=== PATIENT | male | born 1950 | race Caucasian/White ===

== ENCOUNTER 2017-12-19 22:43 | Emergency (ER) | payer MEDICARE, OTHER ==
[~2017-12-19] VITALS: Ht 188 cm; Wt 113.6 kg
[2017-12-19] MEDS ORDERED: epiNEPHrine 1 mg/ml inj SQ STA (22:49)
[2017-12-19] MEDS ORDERED: albuterol 2.5 MG/3 ML nebule CONTNEB PRN (22:50)
[2017-12-19] MEDS ORDERED: normal saline 1000ml 1,000 ML IV ONE (22:50)
[2017-12-19] MEDS ORDERED: famotidine/PF 10 mg/ml inj IV ONE (22:50)
[2017-12-19] MEDS ORDERED: methylPREDNISolone sod succ 125mg/2ml vial IV ONE (22:50)
[2017-12-19] MEDS ORDERED: LORazepam 2 mg/ml vial IV ONE (22:50)
[2017-12-19] MEDS ORDERED: NORMAL SALINE IV ONE (22:55)
[2017-12-19] MEDS ORDERED: TRANEXAMIC ACID IV ONE (22:55)
[2017-12-19] MEDS ORDERED: GABA-534 PO (23:00)
[2017-12-19] MEDS ORDERED: MELO-102 PO (23:00)
[2017-12-19] MEDS ORDERED: LOSA25TA96 PO (23:00)
[2017-12-19] MEDS ORDERED: SAXA5TAB PO (23:00)
[2017-12-19] MEDS ORDERED: GABA-530 PO (23:00)
[2017-12-19] MEDS ORDERED: MULT-38 PO (23:00)
[2017-12-19] MEDS ORDERED: METF500T PO (23:00)
[2017-12-19] MEDS ORDERED: ACET-2119 PO (23:00)
[2017-12-19] MEDS ORDERED: SIMV10TA2 PO (23:00)
[2017-12-19] MEDS ORDERED: tranexamic acid 100mg/ml inj. ONE (23:33)
[2017-12-20] MEDS ORDERED: diphenhydrAMINE 50 mg/ml inj IV ONE (00:25)
[2017-12-20 00:43] VITALS: BP 162/90
[2017-12-20] MEDS ORDERED: LORazepam 2 mg/ml vial IV ONE (00:45)
[2017-12-20 01:05] VITALS: BP 152/87
[2017-12-20 02:01] VITALS: BP 144/72
[2017-12-20] MEDS ORDERED: EPIN0.3P8 IM (02:16)
[2017-12-20] MEDS ORDERED: triamcinolone acetonide 40mg/ml inj IM ONE (02:55)
[2017-12-20 04:21] VITALS: BP 141/70
== END 2017-12-20 04:46 | disposition left against medical advice (07) ==
LOC: ER 22:44
DX: T78.2XXA Anaphylactic shock, unspecified, initial encounter (principal); I10 Essential (primary) hypertension; J45.909 Unspecified asthma, uncomplicated; E11.9 Type 2 diabetes mellitus without complications; Z88.5 Allergy status to narcotic agent; Z79.899 Other long term (current) drug therapy; Z79.84 Long term (current) use of oral hypoglycemic drugs
CPT/HCPCS: 36415; 86885; 86900; 86901; 93005; 94640; 94760; 96365; 96366; 96372; 96375; 99285; J0171; J1200; J2060; J2930; J3301; J3490; J7030; P9059

== ENCOUNTER 2020-10-24 06:23 | Day surgery (SDC) | payer MEDICARE ==
[2020-10-17 14:51] LABS: BASOPHILS # (AUTO) 0.1 X10'3 (0-0.2); BASOPHILS % (AUTO) 0.9 % (0-1); EOSINOPHILS # (AUTO) 0.1 X10'3 (0-0.9); EOSINOPHILS % (AUTO) 1.4 % (0-6); LYMPHOCYTES % (AUTO) 12.2 % (21-51); MEAN CORPUSCULAR HEMOGLOBIN 31.3 PG (27.0-31.0); MEAN CORPUSCULAR HGB CONC 33.2 g/dL (33.0-36.5); MEAN CORPUSCULAR VOLUME 94.2 FL (78-98); MEAN PLATELET VOLUME 7.9 FL (7.4-10.4); MONOCYTES # (AUTO) 0.6 X10'3 (0-0.9); MONOCYTES % (AUTO) 7.7 % (2-12); NEUTROPHILS # (AUTO) 6.3 X10'3 (1.8-7.7); NEUTROPHILS % (AUTO) 77.8 % (42-75); PRE OP HEMATOCRIT 38.2 % (42.0-52.0); PRE OP HEMOGLOBIN 12.7 g/dL (14.0-17.9); PRE OP PLATELET COUNT 307 X10'3 (140-440); RED BLOOD COUNT 4.06 X10'6 (4.70-6.10); RED CELL DISTRIBUTION WIDTH 13.2 % (11.5-14.5)
[2020-10-17 15:04] LABS: ALBUMIN 3.7 G/DL (3.4-5.0); ALBUMIN/GLOBULIN RATIO 1.1 (1.1-1.5); ALKALINE PHOSPHATASE 114 IU/L (46-116); BLOOD UREA NITROGEN 34 MG/DL (7-18); BUN/CREATININE RATIO 16.5 (5.4-32.0); CHLORIDE 103 MMOL/L (99-107); CREATININE 2.06 MG/DL (0.60-1.10); PRE OP ALT 39 U/L (30-65); PRE OP ANION GAP 8 (8-16); PRE OP AST 31 U/L (10-37); PRE OP BILIRUB, TOTAL 0.2 MG/DL (0.0-1.0); PRE OP GLUCOSE 146 MG/DL (70-104); PRE OP SODIUM 137 MMOL/L (135-145); TOTAL CARBON DIOXIDE 25.9 MMOL/L (24-32); TOTAL PROTEIN 7.1 G/DL (6.4-8.2); eGFR 32 ML/MIN
[2020-10-24] VITALS (8 sets, daily range): BP systolic 133–167; BP diastolic 69–84
[~2020-10-24] VITALS: Ht 185.4 cm; Wt 107.0 kg
[~2020-10-24 06:23] MED LIST: ALOG25TA PO; AMLO2.5T2 PO; CALC200T PO; DOCUMENT DATE & TIME OF BETA-BLOCKER PO ONE; EPIN0.3P8 IM; FLAX100032 PO; GABA-530 PO; GABA-534 PO; GLUC-221 PEG; LIDOcaine 1% (10mg/ml) 2ml vial ONE; LOSA25TA96 PO; MELO-102 PO; METF500T PO; METO-384 PO; MV,C1TAB35 PO; albuterol 2.5 MG/3 ML nebule NEB ONE; ceFAZolin 2gm in dextrose, iso 50 ML IV ONE; famotidine 20mg tablet PO ONE; ringers solution, lacted 1,000 ML IV SCH
[2020-10-24] MEDS ORDERED: ringers solution, lacted 1,000 ML IV SCH (07:30)
[2020-10-24] MEDS ORDERED: meperidine/PF 25mg/ml syringe IV PRN ×3 (07:30)
[2020-10-24] MEDS ORDERED: ondansetron/PF 4mg/2ml inj IV PRN (07:30)
[2020-10-24] MEDS ORDERED: proCHLORperazine 10 MG/2 ml inj IV PRN (07:30)
[2020-10-24] MEDS ORDERED: BUPIVAcaine/PF 2.5mg/ml (0.25%) 10ml vial ONE ×2 (09:51→09:54)
[2020-10-24] MEDS ORDERED: LIDOcaine 0.5% (5mg/ml) 50ml vial ONE (09:52)
[2020-10-24] MEDS ORDERED: fentaNYL/PF 50MCG/1 ML 2ML syringe ONE (09:57)
[2020-10-24] MEDS ORDERED: midazolam 1 mg/ML 2ml injection ONE (09:59)
[2020-10-24] MEDS ORDERED: propofol inj 20 ML IV ONE (10:34)
--- NOTE | 2020-10-24 10:50 | NUR ---
Received from OR via [facility], accompanied by Anesthesiologist DR GRADY and report given by Anesthesiologist. PATIENT waking up, DENIES PAIN, V/S WNL, NEUROVASCULAR CHECKS INTACT-right fingers pink warm, able to move and +sensation, RIGHT WRIST DRESSING CDI ELEVATED WITH ICE BAG APPLIED. 20G LUE.
--- NOTE | 2020-10-24 12:00 | NUR ---
PATIENT A&OX4, DENIES PAIN, V/S WNL, NEUROVASCULAR CHECKS INTACT-FINGERS TO RIGHT WRIST PINK WARM, +CAP REFILL, ABLE TO MOVE, RIGHT WRIST DRESSING-CDI, ELEVATED WITH ICE BAG APPLIED. 20G LUE D/C WITH NO COMPLICATIONS OBSERVED. PT HAS HISTORY OF VERTIGO - SLIGHTLY DIZZY (BP WNL), PT AWARE OF NEED TO GO SLOW. I HAVE REVIEWED D/C INSTRUCTIONS WITH PATIENT AND FAMILY AND THEY HAVE VERBALIZED UNDERSTANDING. PATIENT D/C HOME WITH FAMILY TO TRANSPORT AND ALL BELONGINGS.
== END 2020-10-24 12:00 | disposition home or self-care (01) ==
LOC: PAS 06:23
PROVIDERS: ATTEND Orthopaedic Surgery Hand Surgery
DX: M19.041 Primary osteoarthritis, right hand (principal); J45.909 Unspecified asthma, uncomplicated; G47.30 Sleep apnea, unspecified; E11.9 Type 2 diabetes mellitus without complications; I10 Essential (primary) hypertension; E78.00 Pure hypercholesterolemia, unspecified; M85.80 Other specified disorders of bone density and structure, unspecified site; Z72.89 Other problems related to lifestyle; Z88.5 Allergy status to narcotic agent; Z96.653 Presence of artificial knee joint, bilateral; Z98.49 Cataract extraction status, unspecified eye; Z98.84 Bariatric surgery status; Z98.890 Other specified postprocedural states; Z79.899 Other long term (current) drug therapy; Z79.82 Long term (current) use of aspirin; Z79.84 Long term (current) use of oral hypoglycemic drugs; Z79.2 Long term (current) use of antibiotics
CPT/HCPCS: 26531; 36415; 80053; 82948; 85025; 93005; J2001; J2250; J2704; J3010; J3490; L8630; A4215; A4618; A7000; J7120

== ENCOUNTER 2022-05-02 07:30 | Day surgery (SDC) | payer MEDICARE ==
[2022-05-01 10:47] LABS: ALBUMIN 3.9 G/DL (3.4-5.0); ANION GAP 11 (8-16); BLOOD UREA NITROGEN 29 MG/DL (7-18); BUN/CREATININE RATIO 12.7 (5.4-32.0); CALCIUM 8.9 MG/DL (8.5-10.1); CHLORIDE 103 MMOL/L (99-107); CREATININE 2.29 MG/DL (0.60-1.10); GLUCOSE 186 MG/DL (70-104); POTASSIUM 4.4 MMOL/L (3.5-5.1); SODIUM 136 MMOL/L (135-145); TOTAL CARBON DIOXIDE 22.2 MMOL/L (24-32); eGFR 28 ML/MIN
[2022-05-01 10:49] LABS: BASOPHILS # (AUTO) 0.1 X10'3 (0-0.2); BASOPHILS % (AUTO) 1.3 % (0-1); EOSINOPHILS % (AUTO) 0.8 % (0-6); HEMATOCRIT 34.6 % (42.0-52.0); HEMOGLOBIN 11.5 g/dl (14.0-17.9); LYMPHOCYTES # (AUTO) 0.9 X10'3 (1.1-4.8); LYMPHOCYTES % (AUTO) 14.6 % (21-51); MEAN CORPUSCULAR HEMOGLOBIN 30.9 PG (27.0-31.0); MEAN CORPUSCULAR HGB CONC 33.1 g/dL (33.0-36.5); MEAN CORPUSCULAR VOLUME 93.3 FL (78-98); MEAN PLATELET VOLUME 8.1 FL (7.4-10.4); MONOCYTES # (AUTO) 0.4 X10'3 (0-0.9); MONOCYTES % (AUTO) 7.3 % (2-12); NEUTROPHILS # (AUTO) 4.6 X10'3 (1.8-7.7); PLATELET COUNT 248 X10'3 (140-440); RED BLOOD COUNT 3.71 X10'6 (4.70-6.10); RED CELL DISTRIBUTION WIDTH 13.9 % (11.5-14.5)
[2022-05-01 10:52] LABS: APTT 30 SECONDS (22-32)
[2022-05-02] VITALS (12 sets, daily range): BP systolic 130–155; BP diastolic 58–85
[~2022-05-02] VITALS: Ht 185.4 cm; Wt 93.9 kg
[~2022-05-02 07:30] MED LIST changes: -DOCUMENT DATE & TIME OF BETA-BLOCKER PO ONE; -LIDOcaine 1% (10mg/ml) 2ml vial ONE; -albuterol 2.5 MG/3 ML nebule NEB ONE; -ceFAZolin 2gm in dextrose, iso 50 ML IV ONE; -famotidine 20mg tablet PO ONE; -ringers solution, lacted 1,000 ML IV SCH
[2022-05-02] MEDS ORDERED: LORazepam 0.5 MG tablet PO PRN (07:45)
[2022-05-02] MEDS ORDERED: sodium bicarbonate (8.4%) inj. 150 ML in dextrose 5%-water 1,000 ML IV ONE (07:45)
[2022-05-02] MEDS ORDERED: diphenhydrAMINE 25mg capsule PO PRN (07:45)
[2022-05-02] MEDS ORDERED: LIDOcaine/PRILOcaine 5gm cream TP ONE (07:50)
[2022-05-02] MEDS ORDERED: LOSA50TA3 PO (08:02)
[2022-05-02] MEDS ORDERED: ROSU20TA2 PO (08:02)
[2022-05-02] MEDS ORDERED: CALC600T35 PO (08:02)
[2022-05-02] MEDS ORDERED: AMLO10TA PO (08:02)
[2022-05-02] MEDS ORDERED: nitroGLYCERIN-Tridil 50MG/D5W 250 ML IV ONE (08:32)
[2022-05-02] MEDS ORDERED: LIDOcaine 1% (10mg/ml) 2ml vial ONE (08:33)
[2022-05-02] MEDS ORDERED: fentaNYL/PF 50MCG/1 ML 2ML syringe ONE (08:33)
[2022-05-02] MEDS ORDERED: verapamil 2.5 mg/ml inj IV ONE (08:33)
[2022-05-02] MEDS ORDERED: midazolam 1 mg/ML 2ml injection ONE (08:33)
[2022-05-02] MEDS ORDERED: iohexol 350MG/ML 100ml bottle IV ONE (08:34)
[2022-05-02] MEDS ORDERED: heparin 1,000unit/ml 10ml vial 10 ML ONE (08:34)
[2022-05-02] MEDS: acetylcysteine 200 MG/ml 4ml vial PO PRN ×2 (08:42→11:06)
[2022-05-02] MEDS ORDERED: acetylcysteine 200 MG/ml 4ml vial INH ONE (11:05)
[2022-05-02] MEDS ORDERED: sodium bicarbonate (8.4%) inj. 150 MEQ in dextrose 5%-water 1,000 ML IV SCH (11:10)
== END 2022-05-02 16:55 | disposition home or self-care (01) ==
LOC: SSTAY O 07:30
PROVIDERS: ATTEND Internal Medicine Cardiovascular Disease
DX: R94.39 Abnormal result of other cardiovascular function study (principal); I25.10 Atherosclerotic heart disease of native coronary artery without angina pectoris; E78.5 Hyperlipidemia, unspecified; E11.9 Type 2 diabetes mellitus without complications; G47.33 Obstructive sleep apnea (adult) (pediatric); M19.90 Unspecified osteoarthritis, unspecified site; Z79.899 Other long term (current) drug therapy; Z98.890 Other specified postprocedural states; Z79.01 Long term (current) use of anticoagulants
CPT/HCPCS: 36415; 76937; 80048; 85025; 85610; 85730; 93005; 93458; 99152; 99153; C1769; C1894; J1644; J2250; J3010; J3490; J7030; J7070; Q0163; Q9967; A4620; A5120; A6258; A6402

== ENCOUNTER 2023-06-12 09:08 | Observation (INO) | payer MEDICARE ==
[2023-06-11 14:35] LABS: BASOPHILS % (AUTO) 0.8 % (0-1); EOSINOPHILS # (AUTO) 0.1 X10'3 (0-0.9); EOSINOPHILS % (AUTO) 3.3 % (0-6); HEMATOCRIT 27.1 % (42.0-52.0); HEMOGLOBIN 8.5 g/dl (14.0-17.9); LYMPHOCYTES # (AUTO) 0.6 X10'3 (1.1-4.8); LYMPHOCYTES % (AUTO) 30.5 % (21-51); MEAN CORPUSCULAR HEMOGLOBIN 28.5 PG (27.0-31.0); MEAN CORPUSCULAR HGB CONC 31.2 g/dL (33.0-36.5); MEAN CORPUSCULAR VOLUME 91.4 FL (78-98); MEAN PLATELET VOLUME 7.4 FL (7.4-10.4); MONOCYTES # (AUTO) 0.5 X10'3 (0-0.9); MONOCYTES % (AUTO) 26.5 % (2-12); NEUTROPHILS # (AUTO) 0.8 X10'3 (1.8-7.7); NEUTROPHILS % (AUTO) 38.9 % (42-75); PLATELET COUNT 220 X10'3 (140-440); RED BLOOD COUNT 2.97 X10'6 (4.70-6.10); RED CELL DISTRIBUTION WIDTH 16.7 % (11.5-14.5)
[2023-06-11 14:42] LABS: ALBUMIN 3.6 G/DL (3.4-5.0); ANION GAP 11 (8-16); BLOOD UREA NITROGEN 44 MG/DL (7-18); BUN/CREATININE RATIO 9.1 (10.0-20.0); CALCIUM 8.9 MG/DL (8.5-10.1); CHLORIDE 99 MMOL/L (99-107); CREATININE 4.84 MG/DL (0.60-1.10); GLUCOSE 126 MG/DL (70-104); POTASSIUM 3.7 MMOL/L (3.5-5.1); SODIUM 136 MMOL/L (135-145); TOTAL CARBON DIOXIDE 26.2 MMOL/L (24-32); eGFR 12 ML/MIN
[2023-06-11 14:46] LABS: APTT 36 SECONDS (22-32); INR 1.2 INR; PROTHROMBIN TIME 12.9 SECONDS (9.0-12.0)
[2023-06-11 15:00] LABS: ANISOCYTOSIS 1+; PLATELET ESTIMATE NORMAL; TOTAL CELLS COUNTED 100
[2023-06-11 15:01] LABS: HYPOCHROMASIA 1+; POIKILOCYTOSIS FEW; TARGET CELLS FEW; TEAR DROP CELLS FEW
[2023-06-12] VITALS (16 sets, daily range): BP systolic 144–182; BP diastolic 45–77; PULSE 60–80; RESP 16–18; TEMP 97.5–99.1; O2SAT 97–99
[~2023-06-12] VITALS: Ht 185.4 cm; Wt 91.8 kg
[~2023-06-12 09:08] MED LIST changes: -ALOG25TA PO; +ALOG6.252 PO; +AMIO200T72 PO; -AMLO2.5T2 PO; +APIX5TAB3 PO; +ASCO500C17 PO; +ASPI-611 PO; +BUDE10.22 INH; -CALC200T PO; -EPIN0.3P8 IM; -GABA-534 PO; -GLUC-221 PEG; -LOSA25TA96 PO; +MELA5TAB12 PO; -MELO-102 PO; -METF500T PO; +MULT-1085 PO; -MV,C1TAB35 PO; +PHO667C PO; +ROSU20TA2 PO; +ZINC220C7 PO
[2023-06-12] MEDS ORDERED: diphenhydrAMINE 25mg capsule PO PRN (09:30)
[2023-06-12] MEDS ORDERED: normal saline 1,000 ML IV SCH ×2 (09:30→10:25)
[2023-06-12] MEDS ORDERED: LORazepam 0.5 MG tablet PO PRN (09:30)
--- NOTE | 2023-06-12 09:45 | NUR ---
notified pt took Plavix and Eliquis today.
--- NOTE | 2023-06-12 10:00 | NUR ---
notified of pt's lab BUN & Creat. lab results
[2023-06-12] MEDS ORDERED: sodium bicarbonate 1meq/ml syr 150 ML in dextrose 5%-water 1,000 ML IV ONE (10:25)
[2023-06-12] MEDS ORDERED: acetylcysteine 200 MG/ml 4ml vial PO PRN (10:25)
[2023-06-12] MEDS ORDERED: LIDOcaine 1% w/EPI 1:100,000 inj. MDV 50 ML VIAL ONE (10:34)
[2023-06-12] MEDS ORDERED: vancomycin 1,000mg inj ONE (10:35)
[2023-06-12] MEDS ORDERED: fentaNYL/PF 50MCG/1 ML 2ML syringe ONE ×2 (10:35→11:29)
[2023-06-12] MEDS ORDERED: midazolam 1 mg/ML 2ml injection ONE ×2 (10:35→11:29)
[2023-06-12] MEDS ORDERED: NEPHC PO (11:06)
[2023-06-12] MEDS ORDERED: CLOP75TA34 PO (11:06)
--- NOTE | 2023-06-12 11:10 | NUR ---
MD came and discussed with pt risks, benefits and alternatives of doing the procedure, pt would like to proceed with procedure.
[2023-06-12] MEDS ORDERED: verapamil 2.5 mg/ml inj IV ONE (11:28)
[2023-06-12] MEDS ORDERED: heparin 1,000unit/ml 10ml vial 10 ML ONE (11:29)
[2023-06-12] MEDS ORDERED: LIDOcaine 1% (10mg/ml) 2ml vial ONE (11:29)
[2023-06-12] MEDS ORDERED: iohexol 350MG/ML 100ml bottle IV ONE ×2 (11:29→13:03)
[2023-06-12] MEDS ORDERED: LIDOcaine 1% (10mg/ml)w/preservative inj. 20ml MDV ONE (11:30)
[2023-06-12] MEDS ORDERED: nitroGLYCERIN 500mcg/5mL D5W 5 ML IV ONE ×3 (11:31→13:28)
[2023-06-12] MEDS ORDERED: heparin 25,000 UNIT/250ml bag 250 ML IV ONE (12:54)
[2023-06-12] MEDS ORDERED: clopidogrel 300mg tablet ONE (13:41)
[2023-06-12] MEDS ORDERED: OXAZEpam 15mg capsule PO PRN (14:40)
[2023-06-12] MEDS ORDERED: acetaminophen 325mg tablet PO PRN ×2 (14:40)
[2023-06-12] MEDS ORDERED: magnesium hydroxide 30ml (MOM) UD suspension PO PRN (14:40)
[2023-06-12] MEDS ORDERED: proCHLORperazine 10 MG/2 ml inj IV PRN (14:40)
[2023-06-12] MEDS ORDERED: HYDROcodone/acetaminophen 10/325mg tab PO PRN ×2 (14:40)
[2023-06-12] MEDS: aspirin 81mg tab.chew PO SCH (14:53)
--- NOTE | 2023-06-12 22:35 | NUR ---
pt in stable condition, Femstop in place, no hematoma at this time, all pt belongings transferred with pt, gave bedside report to BLAKE Huerta & BLAKE Araujo, pt is in room #3023A, pt is in no distress at this time, call light within reach and pt is comfortable at this time.
[2023-06-13] VITALS: RESP 18; O2SAT 98
--- NOTE | 2023-06-13 00:19 | NUR ---
Patient ordered SVN Proventil Q6h & Pulmicort BID. Patient refused orders as he states he doesnt take Symbicort @ home. The SVNs were ordered to replace Symbicort.
[2023-06-13 02:00] VITALS: BP 112/42; PULSE 67; RESP 16; TEMP 97.8; O2SAT 94
[2023-06-13] MEDS ORDERED: albuterol 2.5 MG/3 ML nebule NEB SCH (03:00)
--- NOTE | 2023-06-13 07:00 | NUR ---
Patient in room PCU 3023. I have received report from BLAKE Araujo and had the opportunity to ask questions and assume patient care. Patient stable and in no acute distress. Femstop still on at shift change and taken off first thing this AM.
[2023-06-13 08:00] VITALS: RESP 16; O2SAT 95
[2023-06-13] MEDS ORDERED: clopidogrel 75mg tablet PO SCH ×2 (08:00)
[2023-06-13] MEDS ORDERED: calcium acetate 667mg (PhosLO) capsule PO SCH (08:00)
[2023-06-13] MEDS ORDERED: metoprolol succinate 25mg (24-HOUR) SR. Tablet PO SCH (08:00)
[2023-06-13] MEDS ORDERED: apixaban 5mg tablet PO SCH (08:00)
[2023-06-13] MEDS ORDERED: multivitamins, therapeutics tablet PO SCH (08:00)
[2023-06-13] MEDS ORDERED: amiodarone 200mg tablet PO SCH (08:00)
[2023-06-13] MEDS ORDERED: ROSUVASTATIN CALCIUM 5 MG TABLET PO SCH (08:00)
[2023-06-13] MEDS ORDERED: gabapentin 100mg capsule PO SCH ×2 (08:00)
[2023-06-13] MEDS ORDERED: linagliptin 5mg tablet PO SCH (08:00)
[2023-06-13] MEDS ORDERED: folic acid/vitamin B complex w/vitamin C 0.8mg tablet PO SCH (08:00)
[2023-06-13 09:00] VITALS: BP 128/54; PULSE 79
[2023-06-13] MEDS ORDERED: budesonide 0.5mg/2ml UD nebule IH SCH (09:00)
[2023-06-13] MEDS: aspirin 81mg tab.chew PO SCH (09:05)
[2023-06-13 09:18] LABS: EOSINOPHILS % (AUTO) 1.8 % (0-6); HEMATOCRIT 23.1 % (42.0-52.0); HEMOGLOBIN 7.2 g/dl (14.0-17.9); LYMPHOCYTES # (AUTO) 0.6 X10'3 (1.1-4.8); LYMPHOCYTES % (AUTO) 25.5 % (21-51); MEAN CORPUSCULAR HEMOGLOBIN 28.5 PG (27.0-31.0); MEAN CORPUSCULAR HGB CONC 31.3 g/dL (33.0-36.5); MEAN CORPUSCULAR VOLUME 90.9 FL (78-98); MEAN PLATELET VOLUME 7.8 FL (7.4-10.4); MONOCYTES # (AUTO) 0.6 X10'3 (0-0.9); MONOCYTES % (AUTO) 28.9 % (2-12); NEUTROPHILS # (AUTO) 0.9 X10'3 (1.8-7.7); NEUTROPHILS % (AUTO) 41.8 % (42-75); PLATELET COUNT 195 X10'3 (140-440); RED BLOOD COUNT 2.54 X10'6 (4.70-6.10); RED CELL DISTRIBUTION WIDTH 17.1 % (11.5-14.5); WHITE BLOOD COUNT 2.2 X10'3 (4.5-11.0)
[2023-06-13 09:49] LABS: ANISOCYTOSIS 1+; PLATELET ESTIMATE NORMAL; TOTAL CELLS COUNTED 100
[2023-06-13 09:50] LABS: ELLIPTOCYTES FEW; HYPOCHROMASIA 1+; TEAR DROP CELLS FEW
--- NOTE | 2023-06-13 09:53 | NUR ---
Reassessment of tylenol not done at 0217. Reassessment done in the morning and patient complains of no pain.
[2023-06-13 10:12] LABS: ALBUMIN 2.9 G/DL (3.4-5.0); ANION GAP 12 (8-16); BLOOD UREA NITROGEN 56 MG/DL (7-18); BUN/CREATININE RATIO 9.8 (10.0-20.0); CALCIUM 8.7 MG/DL (8.5-10.1); CHLORIDE 103 MMOL/L (99-107); CREATININE 5.72 MG/DL (0.60-1.10); GLUCOSE 86 MG/DL (70-104); POTASSIUM 4.5 MMOL/L (3.5-5.1); SODIUM 138 MMOL/L (135-145); TOTAL CARBON DIOXIDE 23.5 MMOL/L (24-32); eCRCL 13 ML/MIN; eGFR 10 ML/MIN
--- NOTE | 2023-06-13 11:45 | NUR ---
Patient stable for discharge per MD orders. Belongings collected and sent with patient. Discharge packet discussed with patient and patient keeping appointment with Dr. Matson on 07/02. Patient will make own appointment with PCP at the [facility]. No new prescriptions. Patient was on Plavix prior to cath, and had plavix at home. court monitor discontinued. PIV discontinued and cannula intact. Patient wheeled down to the lobby and left via private vehicle.
[2023-06-13] MEDS ORDERED: Melatonin 3mg tablet PO SCH (21:00)
== END 2023-06-13 12:11 | disposition home or self-care (01) ==
LOC: SSTAY O 09:08 → PACU 22:07 → PCU 3S 22:57
PROVIDERS: ADMIT Internal Medicine Cardiovascular Disease; ATTEND Internal Medicine Cardiovascular Disease
DX: I25.10 Atherosclerotic heart disease of native coronary artery without angina pectoris (principal); I49.5 Sick sinus syndrome; I12.9 Hypertensive chronic kidney disease with stage 1 through stage 4 chronic kidney disease, or unspecified chronic kidney disease; E11.22 Type 2 diabetes mellitus with diabetic chronic kidney disease; N18.9 Chronic kidney disease, unspecified; E78.5 Hyperlipidemia, unspecified; I48.0 Paroxysmal atrial fibrillation; I73.9 Peripheral vascular disease, unspecified; Z79.899 Other long term (current) drug therapy; Z95.0 Presence of cardiac pacemaker
CPT/HCPCS: 36415; 76937; 80048; 85025; 85347; 85610; 85730; 92921; 93005; 96365; 96366; C1874; C9600; G0378; J1644; J2250; J3010; J3490; J7030; J7040; J7070; Q0163; Q9967; 85007; 99152; 99153; A6212; A6258; C1725; C1751; C1769; C1894; J3370